=== PATIENT | female | born 1995 | race Caucasian/White ===

== ENCOUNTER → 2022-09-20 15:04 | Outpatient (CLI) | payer OTHER, SELFPAY ==
--- NOTE | 2022-09-20 | DI.ECHO.S_ITS ---
[facility] +---------+ : : [address] : [place] : : : : [id number] : : : : Phone: [phone]---------+ Echocardiogram Report + + :Name: LINDA BROWN Study Date: 09/20/2022 Height: 66 in : :[facility] ReadingLocation: Weight: 118 lb : : Gender: Female BSA: 1.6 m2 : :: 1995 Age: 27 yrs BP: 128/88 mmHg: :Reason For Study: PALPITATIONS : :Ordering Physician: LEON, : :KELLY Aguayo Performed By: Rosa Hayden : :Referring: KELLY EDMONDS : + + Interpretation Summary The ejection fraction is estimated to be 60-65%. The right ventricle is normal in size and function. No significant valvular abnormalities. Unable to estimate PASP. Procedure: A two-dimensional transthoracic echocardiogram with color flow and Doppler was performed. The study quality was technically adequate. There is no prior echocardiogram noted for this patient. The patient was in sinus tachycardia with heart rates between 85-110 bpm during the exam. Left Ventricle: There is normal left ventricular wall thickness. The left ventricle is normal in size. The ejection fraction is estimated to be 60-65%. Diastolic parameters suggest probable normal left ventricular diastolic function and normal filling pressures. Right Ventricle: The right ventricle is normal in size and function. Atria: The left atrial size is normal. Right atrial size is normal. There is no Doppler evidence for an interatrial shunt. Mitral Valve: The mitral valve is normal in structure and function. There is no mitral regurgitation noted. Aortic Valve: The aortic valve is trileaflet. The aortic valve opens well. There is no aortic valve stenosis. No aortic regurgitation is present. Tricuspid Valve: The tricuspid valve is normal in structure and function. There is trace tricuspid regurgitation. Pulmonary artery pressures cannot be estimated because of the lack of a measurable TR jet velocity. Pulmonic Valve: The pulmonic valve is not well visualized. There is trace pulmonic regurgitation. Great Vessels: The aortic root is normal size. The dimensions of the ascending aorta are normal. The IVC is of normal diameter and collapses greater than 50% with a sniff. This suggests a low right atrial pressure of 3 mm Hg. Pericardium/ Pleura There is no pericardial effusion. There is no pleural effusion. MMode/2D Measurements & Calculations LVIDd: 3.7 cm LVOT diam: 2.0 cm LVIDs: 2.3 cm Ao root diam: 2.8 cm FS: 37.6 % asc Aorta Diam: 2.8 cm IVSd: 0.80 cm Ao Arch Diam (Prox Trans): 2.4 cm LVPWd: 0.79 cm LV mitchell. diameter/BSA (cm/m^2): 2.3 LV sys. diameter/BSA (cm/m^2): 1.4 LA A2 area: 11.5 cm2 RA long axis: 3.9 cm LA A4 area: 18.7 cm2 RA area: 10.4 cm2 LA length (vol): 4.7 cm RA vol: 23.2 ml LA vol: 38.8 ml RA : 14.5 ml/m2 LA vol index: 24.3 ml/m2 IVC diam: 1.4 cm RVD1 (basal): 3.1 cm TAPSE: 2.9 cm Doppler Measurements & Calculations Ao V2 max: 150.2 cm/sec LVOT Max Pavan: 102.6 cm/sec Ao V2 mean: 104.3 cm/sec LV V1 max P.2 mmHg Ao max P.0 mmHg LV V1 VTI: 20.7 cm Ao mean P.9 mmHg SAMIR(I,D): 2.2 cm2 Ao V2 VTI: 29.4 cm SAMIR(V,D): 2.1 cm2 sev ratio: 0.71 SAMIR indexed to BSA (cm^2/m^2): 1.3 MV E max pavan: 100.6 cm/sec PA V2 max: 127.6 cm/sec MV A max pavan: 63.1 cm/sec PA V2 mean: 88.9 cm/sec MV E/A: 1.6 PA mean P.5 mmHg Med Peak E' Pavan: 15.8 cm/sec PA pr(Accel): 32.8 mmHg E/E' med: 6.4 Lat Peak E' Pavan: 18.8 cm/sec E/E' lat: 5.4 E/e' average: 5.9 MV dec time: 0.17 sec SV(LVOT): 63.3 ml Reading Physician:10:24 AM
== END ==
PROVIDERS: PCP Nurse Practitioner Family; Referring Provider Internal Medicine Cardiovascular Disease; Visit Provider Internal Medicine Cardiovascular Disease
DX: R00.2 Palpitations (principal)
CPT/HCPCS: 93306